=== PATIENT | male | born 1955 | race Caucasian/White ===

== ENCOUNTER 2019-04-29 09:22 | Day surgery (SDC) | payer MEDICARE, MEDICAID ==
[~2019-04-29] VITALS: Ht 170.2 cm; Wt 51.8 kg
[2019-04-29] MEDS ORDERED: TEST200V10 IM (10:24)
[2019-04-29] MEDS ORDERED: PANT-47 GT (10:24)
[2019-04-29] MEDS ORDERED: celexa GT (10:24)
[2019-04-29] MEDS ORDERED: HALO2TAB GT (10:24)
[2019-04-29 10:50] VITALS: BP 110/52
[2019-04-29] MEDS ORDERED: iohexol 300 MG/1 ML 50ml polymer ONE (11:51)
[2019-04-29] MEDS ORDERED: LIDOcaine 1%/PF 5ML 10 MG/ML VIAL ONE (11:51)
[2019-04-29 12:22] VITALS: BP 109/67
[2019-04-29 12:38] VITALS: BP 122/74
== END 2019-04-29 13:35 | disposition home or self-care (01) ==
LOC: SSTAY O 09:22
PROVIDERS: ATTEND Radiology Vascular & Interventional Radiology
DX: K94.23 Gastrostomy malfunction (principal); K21.9 Gastro-esophageal reflux disease without esophagitis; Z88.8 Allergy status to other drugs, medicaments and biological substances; Z79.899 Other long term (current) drug therapy; Y83.8 Other surgical procedures as the cause of abnormal reaction of the patient, or of later complication, without mention of misadventure at the time of the procedure; Y82.8 Other medical devices associated with adverse incidents
CPT/HCPCS: 49450; 74018; C1769; Q9967; B4087